=== PATIENT | male | born 1945 | race Caucasian/White ===

== ENCOUNTER → 2022-02-27 | Outpatient (REF) | payer MEDICARE, BC | LOC: M SFHCDERM 13:17 | PROVIDERS: ATTEND Nurse Practitioner Family | DX: R21 Rash and other nonspecific skin eruption (principal) ==

== ENCOUNTER 2022-10-09 07:10 | Day surgery (SDC) | payer BC, MEDICARE ==
[~2022-10-09] VITALS: Ht 180.3 cm; Wt 96.6 kg
[~2022-10-09 07:10] MED LIST: CEFUROXIME 1MG/0.1ML INTRACAMERAL INJ As Ordered ONE; CYCLOPENTOLATE 1% OPHTH SOLN 2ML BTL OS SCH; ELIQ5TAB PO; EQL400CA9 PO; GABA-1171 PO; LEVOTAB10 PO; LIDOCAINE 1% SDV 5ML VIAL As Ordered ONE; METO1TAB33 PO; MULT-90 PO; NITR0.4S14 SL; OCUVTAB4 PO; OFLOXACIN 0.3 % (OCUFLOX) OPTH SOL 5ML OS SCH; PHENYLEPHRINE 2.5% OPHTH SOL 2ML OS SCH; PROPARACAINE 0.5% OPHTH SOL 15ML OS ONE; TERA1CAP3 PO; TRIA0.5O TOP; TROPICAMIDE 1% OPHTH SOLN 15ML OS SCH; VALS1TAB67 PO
[2022-10-09] MEDS ORDERED: BSS IRR 500ML/OMIDRIA 4ML IRR BAG (OR ONLY) As Ordered ONE (08:50)
[2022-10-09] MEDS ORDERED: MIDAZOLAM INJ 2MG/2ML VIAL As Ordered ONE (09:48)
[2022-10-09 10:25] VITALS: BP 112/68; TEMP 98.2; O2SAT 100
== END 2022-10-09 10:56 | disposition home or self-care (01) ==
LOC: M SDC 07:10
PROVIDERS: ATTEND Ophthalmology
DX: H25.12 Age-related nuclear cataract, left eye (principal); I10 Essential (primary) hypertension; E78.5 Hyperlipidemia, unspecified; Z79.01 Long term (current) use of anticoagulants; Z79.899 Other long term (current) drug therapy; R21 Rash and other nonspecific skin eruption; Z87.891 Personal history of nicotine dependence; Z88.8 Allergy status to other drugs, medicaments and biological substances
CPT/HCPCS: 66984; J0697; J1097; J2250; V2632

== ENCOUNTER → 2024-01-17 | Outpatient (CLI) | payer BC, MEDICARE ==
[~2024-01-17] MED LIST changes: +BICA50TA4 PO; -CEFUROXIME 1MG/0.1ML INTRACAMERAL INJ As Ordered ONE; -CYCLOPENTOLATE 1% OPHTH SOLN 2ML BTL OS SCH; +DUPI300P; +FLOM0.4C39 PO; -LIDOCAINE 1% SDV 5ML VIAL As Ordered ONE; -OFLOXACIN 0.3 % (OCUFLOX) OPTH SOL 5ML OS SCH; -PHENYLEPHRINE 2.5% OPHTH SOL 2ML OS SCH; -PROPARACAINE 0.5% OPHTH SOL 15ML OS ONE; -TROPICAMIDE 1% OPHTH SOLN 15ML OS SCH
== END ==
LOC: M ONCR 10:14
PROVIDERS: ATTEND General Practice
DX: C61 Malignant neoplasm of prostate (principal); R97.21 Rising PSA following treatment for malignant neoplasm of prostate; R35.0 Frequency of micturition; R35.1 Nocturia; Z79.01 Long term (current) use of anticoagulants; Z79.899 Other long term (current) drug therapy; Z87.891 Personal history of nicotine dependence; Z88.5 Allergy status to narcotic agent

== ENCOUNTER → 2024-02-25 | Outpatient (CLI) | payer BC, MEDICARE ==
[~2024-02-25] VITALS: Ht 180.3 cm; Wt 99.5 kg
[~2024-02-25] MED LIST changes: +BACTDSTA PO; +LORA1TAB23 PO
[2024-02-25 15:19] VITALS: BP 113/69; O2SAT 96
[2024-02-25] MEDS: LIDOCAINE 2% MDV 20ML VIAL XX ONE (15:30)
[2024-02-25] MEDS: LIDOCAINE VISCOUS 2% SOLN 15ML UDC XX ONE (15:30)
[2024-02-25 15:44] VITALS: BP 112/77; O2SAT 98
== END ==
LOC: M ONCR 14:13
PROVIDERS: ATTEND General Practice
DX: C61 Malignant neoplasm of prostate (principal)
CPT/HCPCS: 55874; 55876; A4648; C1889

== ENCOUNTER 2024-03-05 13:35 | Outpatient (RCR) | payer BC, MEDICARE | END 2024-03-17 | LOC: M ONCR 13:35 | PROVIDERS: ATTEND General Practice | DX: Z51.0 Encounter for antineoplastic radiation therapy (principal); C61 Malignant neoplasm of prostate ==

== ENCOUNTER → 2024-03-05 | Outpatient (CLI) | payer BC, MEDICARE ==
[2024-03-05] MEDS: LEUPROLIDE 45MG SYRINGE KIT (LUPRON DEPOT) IM ONE (14:40)
== END ==
LOC: M ONCR 13:38
PROVIDERS: ATTEND General Practice
DX: C61 Malignant neoplasm of prostate (principal); Z79.818 Long term (current) use of other agents affecting estrogen receptors and estrogen levels
CPT/HCPCS: 96402; J9217

== ENCOUNTER 2024-03-27 12:05 | Outpatient (RCR) | payer BC, MEDICARE | END 2024-04-17 | LOC: M ONCR 12:05 | PROVIDERS: ATTEND General Practice | DX: Z51.0 Encounter for antineoplastic radiation therapy (principal); C61 Malignant neoplasm of prostate ==

== ENCOUNTER → 2024-06-25 | Outpatient (CLI) | payer BC, MEDICARE | LOC: M ONCR 10:20 | PROVIDERS: ATTEND General Practice | DX: C61 Malignant neoplasm of prostate (principal); R39.12 Poor urinary stream; R30.0 Dysuria; Z92.3 Personal history of irradiation; Z79.818 Long term (current) use of other agents affecting estrogen receptors and estrogen levels; Z79.01 Long term (current) use of anticoagulants; Z79.899 Other long term (current) drug therapy; Z87.891 Personal history of nicotine dependence; Z88.5 Allergy status to narcotic agent ==

== ENCOUNTER → 2024-12-25 | Outpatient (CLI) | payer MEDICARE, BC ==
[~2024-12-25] MED LIST changes: -FLOM0.4C39 PO; +TAMS-18 PO
== END ==
LOC: M ONCR 09:03
PROVIDERS: ATTEND General Practice
DX: Z08 Encounter for follow-up examination after completed treatment for malignant neoplasm (principal); Z85.46 Personal history of malignant neoplasm of prostate; R35.0 Frequency of micturition; Z92.3 Personal history of irradiation; Z79.01 Long term (current) use of anticoagulants; Z79.818 Long term (current) use of other agents affecting estrogen receptors and estrogen levels; Z79.899 Other long term (current) drug therapy; Z87.440 Personal history of urinary (tract) infections; Z87.891 Personal history of nicotine dependence; Z88.5 Allergy status to narcotic agent